=== PATIENT | female | born 1995 | race Caucasian/White ===

== ENCOUNTER 2019-04-02 03:53 | Emergency (ER) | payer OTHER ==
[~2019-04-02] VITALS: Ht 157.5 cm; Wt 59.0 kg
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
[2019-04-02 03:57] VITALS: BP 121/79
[2019-04-02] MEDS ORDERED: IBUPROFEN600 MG ORAL (04:14)
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
[2019-04-02 05:00] VITALS: BP_SYST 119; BP_SYST 121; BP_DIAS 78; BP_DIAS 79
== END 2019-04-02 05:00 ==
LOC: EDBD 03:53 → EMR 04:55
DX: S20.319A Abrasion of unspecified front wall of thorax, initial encounter (principal); F10.920 Alcohol use, unspecified with intoxication, uncomplicated; S29.9XXA Unspecified injury of thorax, initial encounter; V43.52XA Car driver injured in collision with other type car in traffic accident, initial encounter; Y92.410 Unspecified street and highway as the place of occurrence of the external cause
CPT/HCPCS: 99283